=== PATIENT | male | born 1980 | race Caucasian/White ===

== ENCOUNTER 2016-09-01 11:05 | Emergency (ER) | payer SELFPAY ==
[2016-09-01 11:19] VITALS: BP 157/93; PULSE 71; RESP 16; TEMP 98
--- NOTE | 2016-09-01 11:57 | ED ---
General Adult HPI - General Chief complaint: ENT Stated complaint: MOUTH INFECTION Time Seen by Provider: 09/01/16 11:29 Source: patient, RN notes reviewed, old records reviewed Mode of arrival: ambulatory Limitations: no limitations - History of Present Illness Initial comments: Chief complaint and history of present for 6-year-old male to complaint of dental pain. Teeth #13 and 14 have dental caries. He states within the month he is scheduled to have 2 root canals. - Related Data Home Medications Medication Instructions Recorded Confirmed Aspirin 325 - 650 mg PO QID PRN 12/16/15 09/01/16 Ibuprofen [Motrin] 400 - 800 mg PO Q6HR PRN 09/01/16 09/01/16 Previous Rx's Medication Instructions Recorded Cephalexin [Keflex] 500 mg PO Q6HR #40 cap 09/01/16 Hydrocodone/Acetaminophen [[place] 1 each PO Q6HR PRN #15 tab 09/01/16 5-325] Allergies Allergy/AdvReac Type Severity Reaction Status Date / Time No Known Allergies Allergy Verified 09/01/16 11:30 Review of Systems ROS Statement: Those systems with pertinent positive or pertinent negative responses have been documented in the HPI. Review of systems. No headache minimal pain at this time no stiff neck no complaint of chest pain shows breath GI/ problems no complaint of a neuro deficits. All systems are reviewed. Past medical problems dental problems. Also probably rheumatoid arthritis who was described him as a migrating arthritis. Patient denies any surgeries. Denies any ALLERGIES. Denies any smoking. Alcohol use social. No known ALLERGIES but he states the amoxicillin which been used in the past was not as effective. ROS Other: All systems not noted in ROS Statement are negative. Past Medical History Past Medical History: Rheumatoid Arthritis (RA) History of Any Multi-Drug Resistant Organisms: None Reported Past Surgical History: No Surgical Hx Reported Past Psychological History: No Psychological Hx Reported Smoking Status: Never smoker Past Alcohol Use History: None Reported Past Drug Use History: None Reported General Exam - General Exam Comments Initial Comments: General: The patient is awake and alert, in no distress, and does not appear acutely ill. Complaint of tooth pain to his #13 and 15 teeth. Vital signs temp 98.0 pulse 71 respiratory rate 16 pulse ox 98% room air blood pressure 157/93 elevated systolic diastolic noted the patient is in pain. Advised to talk to his family physician if he does not have one that he'll be given a name of 1 to follow-up with to make sure the blood pressure under control. Within the next week Eye: Pupils are equal, round and reactive to light, extra-ocular movements are intact ; there is normal conjunctiva bilaterally. No signs of icterus. Ears, nose, mouth and throat: There are moist mucous membranes and no oral lesions. Teeth #13 and 15 of cavities. He states he is scheduled to have a root canal within the month. Neck: The neck is supple, there is no tenderness . Cardiovascular: No chest pain or palpitations Respiratory: No shortness of breath, no wheezing. Gastrointestinal: Denies nausea vomiting or diarrhea. Musculoskeletal: History of migratory arthritis. No complaints at this time. Limitations: no limitations Course Vital Signs 09/01/16 11:16 Temperature 98.0 F Pulse Rate 71 Respiratory 16 Rate Blood Pressure 157/93 O2 Sat by Pulse 98 Oximetry Medical Decision Making - Medical Decision Making The patient is advised follow-up with family physician he does not have one be given 1 his blood pressure. Also advised follow-up with his dentist. Replaced on cephalexin 500 4 times a day for 10 days. Advised to use [id number] ibuprofen and/or naproxen for pain he'll also be given a prescription of Everett for breakthrough pain. Disposition Clinical Impression: Dental caries extending into pulp Disposition: HOME SELF-CARE Condition: Fair Instructions: Dental Caries (ED), Acute Dental Trauma (ED) Additional Instructions: Follow-up with dentist as soon as possible. Follow-up with family physician to make sure the pressure stays in range. Take medications as directed Prescriptions: Cephalexin [Keflex] 500 mg PO Q6HR #40 cap Hydrocodone/Acetaminophen [Everett 5-325] 1 each PO Q6HR PRN #15 tab PRN Reason: Pain Time of Disposition: 11:57
== END 2016-09-01 12:14 | disposition home or self-care (01) ==
LOC: EC 11:05
DX: K02.9 Dental caries, unspecified (principal)
CPT/HCPCS: 99282

== ENCOUNTER 2017-03-13 02:58 | Observation (INO) | payer OTHER ==
[2017-03-13] MEDS ORDERED: SODIUM CHLORIDE 0.9% 1,000 ML IV STA (03:40)
[2017-03-13] MEDS ORDERED: PANTOPRAZOLE 40 MG/10 ML VIAL IVP STA (03:40)
[2017-03-13] MEDS ORDERED: MORPHINE SULFATE 4 MG/ML SYRINGE IV STA ×2 (03:41→04:37)
--- NOTE | 2017-03-13 03:46 | ED ---
General Adult HPI - General Chief complaint: GI Bleed Stated complaint: abd pain, vomiting blood Time Seen by Provider: 03/13/17 03:34 Source: patient, RN notes reviewed Mode of arrival: wheelchair Limitations: no limitations - History of Present Illness Initial comments: Patient is a pleasant 37-year-old male presenting to the emergency department for vomiting blood. Patient woke up around 11:30 with abdominal cramping. Patient had a normal bowel movement. Patient has had nausea. Patient then had an episode with several episodes of hematemesis lasting 1 minute. Patient did have some bright red as well as some dark red and possible clots. No history of vomiting blood previously. Patient does have chronic problems with frequent diarrhea. Patient has continued intermittent abdominal cramping. No significant NSAID or alcohol use. - Related Data Home Medications Medication Instructions Recorded Confirmed Aspirin 325 - 650 mg PO QID PRN 12/16/15 09/01/16 Ibuprofen [Motrin] 400 - 800 mg PO Q6HR PRN 09/01/16 09/01/16 Previous Rx's Medication Instructions Recorded Cephalexin [Keflex] 500 mg PO Q6HR #40 cap 09/01/16 Hydrocodone/Acetaminophen [[place] 1 each PO Q6HR PRN #15 tab 09/01/16 5-325] Allergies Allergy/AdvReac Type Severity Reaction Status Date / Time No Known Allergies Allergy Verified 03/13/17 03:07 Review of Systems ROS Statement: Those systems with pertinent positive or pertinent negative responses have been documented in the HPI. ROS Other: All systems not noted in ROS Statement are negative. Constitutional: Denies: fever Eyes: Denies: eye pain ENT: Denies: ear pain Respiratory: Denies: cough Cardiovascular: Denies: chest pain Endocrine: Denies: fatigue Gastrointestinal: Reports: abdominal pain, vomiting, hematemesis Genitourinary: Denies: dysuria Musculoskeletal: Denies: back pain Skin: Denies: rash Neurological: Denies: weakness Past Medical History Past Medical History: Rheumatoid Arthritis (RA) History of Any Multi-Drug Resistant Organisms: None Reported Past Surgical History: No Surgical Hx Reported Past Psychological History: No Psychological Hx Reported Smoking Status: Never smoker Past Alcohol Use History: None Reported Past Drug Use History: None Reported General Exam Limitations: no limitations General appearance: alert, in no apparent distress Head exam: Present: atraumatic Eye exam: Present: normal appearance, PERRL ENT exam: Present: normal oropharynx Neck exam: Present: normal inspection Respiratory exam: Present: normal lung sounds bilaterally Cardiovascular Exam: Present: regular rate, normal rhythm Expanded Peripheral pulses: 2+: Dorsalis Pedis (R), Dorsalis Pedis (L) GI/Abdominal exam: Present: soft, tenderness (Mild right flank and epigastric tenderness), normal bowel sounds. Absent: distended, guarding, rebound, rigid, pulsatile mass Extremities exam: Present: normal inspection Neurological exam: Present: alert Psychiatric exam: Present: normal affect, normal mood Skin exam: Present: normal color Course Vital Signs 03/13/17 03/13/17 03/13/17 03:04 03:45 04:16 Temperature 98.4 F Pulse Rate 75 84 77 Respiratory 20 18 18 Rate Blood Pressure 204/114 178/110 171/106 O2 Sat by Pulse 98 96 95 Oximetry 03/13/17 04:19 Temperature Pulse Rate 82 Respiratory 18 Rate Blood Pressure 166/98 O2 Sat by Pulse 97 Oximetry - Reevaluation(s) Reevaluation #1: 03/13/17 04:35 Patient reevaluated and resting comfortably in bed. Patient states his pain is starting to return. Patient requests further pain medication. Patient blood pressure remains high however he just did receive medication for this. Patient updated on results and plan. Case discussed in detail with Dr. Hook, who will admit for hospital call. Medical Decision Making - Lab Data Result diagrams: 03/13/17 03:35 03/13/17 03:35 Lab Results 03/13/17 03/13/17 03/13/17 Range/Units 03:35 03:35 03:35 WBC 10.9 H (3.8-10.6) k/uL RBC 5.26 (4.30-5.90) m/uL Hgb 16.8 (13.0-17.5) gm/dL Hct 48.9 (39.0-53.0) % MCV 92.9 (80.0-100.0) fL MCH 32.0 (25.0-35.0) pg MCHC 34.4 (31.0-37.0) g/dL RDW 12.2 (11.5-15.5) % Plt Count 221 (150-450) k/uL Neutrophils % 73 % Lymphocytes % 20 % Monocytes % 4 % Eosinophils % 2 % Basophils % 1 % Neutrophils # 7.9 H (1.3-7.7) k/uL Lymphocytes # 2.2 (1.0-4.8) k/uL Monocytes # 0.4 (0-1.0) k/uL Eosinophils # 0.2 (0-0.7) k/uL Basophils # 0.1 (0-0.2) k/uL PT 10.1 (9.0-12.0) sec INR 1.0 (<1.2) APTT 24.0 (22.0-30.0) sec Sodium 142 (137-145) mmol/L Potassium 4.4 (3.5-5.1) mmol/L Chloride 104 (98-107) mmol/L Carbon Dioxide 26 (22-30) mmol/L Anion Gap 12 mmol/L BUN 12 (9-20) mg/dL Creatinine 0.90 (0.66-1.25) mg/dL Est GFR (MDRD) Af Amer >60 (>60 ml/min/1.73 sqM) Est GFR (MDRD) Non-Af >60 (>60 ml/min/1.73 sqM) Glucose 138 H (74-99) mg/dL Calcium 9.8 (8.4-10.2) mg/dL Total Bilirubin 0.4 (0.2-1.3) mg/dL AST 63 H (17-59) U/L ALT 171 H (21-72) U/L Alkaline Phosphatase 70 (38-126) U/L Total Protein 7.4 (6.3-8.2) g/dL Albumin 4.6 (3.5-5.0) g/dL Amylase 57 (30-110) U/L Lipase 148 (23-300) U/L Disposition Clinical Impression: Upper GI hemorrhage Disposition: ADMITTED IP TO THIS HOSP Referrals: None,Stated [Primary Care Provider] - 1-2 days Decision Time: 04:36
[2017-03-13] MEDS ORDERED: ENALAPRILAT 1.25 MG/ML 1 ML VIAL IVP STA (03:56)
[2017-03-13 03:57] LABS: Basophils # (A) 0.1 k/uL (0-0.2); Basophils % (A) 1 %; CH 31.9; CHCM 34.5; Eosinophils # (A) 0.2 k/uL (0-0.7); Eosinophils % (A) 2 %; HCT 48.9 % (39.0-53.0); HDW 2.47; HGB 16.8 gm/dL (13.0-17.5); Luc # (Auto) 0.15; Luc % (Auto) 1; Lymphocytes # (A) 2.2 k/uL (1.0-4.8); Lymphocytes % (A) 20 %; MCHC 34.4 g/dL (31.0-37.0); MCV 92.9 fL (80.0-100.0); Monocytes # (A) 0.4 k/uL (0-1.0); Monocytes % (A) 4 %; Neutrophils # (A) 7.9 k/uL (1.3-7.7); Neutrophils % (A) 73 %; RBC 5.26 m/uL (4.30-5.90); RDW 12.2 % (11.5-15.5); WBC 10.9 k/uL (3.8-10.6)
[2017-03-13 04:09] LABS: Prothrombin Time 10.1 sec (9.0-12.0)
[2017-03-13 04:11] LABS: ALT 171 U/L (21-72); AST 63 U/L (17-59); Alkaline Phosphatase 70 U/L (38-126); Amylase 57 U/L (30-110); Anion Gap 12 mmol/L; Blood Urea Nitrogen 12 mg/dL (9-20); Calcium 9.8 mg/dL (8.4-10.2); Carbon Dioxide 26 mmol/L (22-30); Chloride 104 mmol/L (98-107); Glucose 138 mg/dL (74-99); Non-African American GFR(MDRD) >60 (>60 ml/min/1.73 sqM); Potassium 4.4 mmol/L (3.5-5.1); Sodium 142 mmol/L (137-145); Total Bilirubin 0.4 mg/dL (0.2-1.3); Total Protein 7.4 g/dL (6.3-8.2)
--- NOTE | 2017-03-13 04:14 | XR ---
EXAM: XR Abdomen Complete, 2 or More Views CLINICAL HISTORY: Reason: Pain TECHNIQUE: Frontal view of the abdomen/pelvis with upright view of the abdomen. COMPARISON: No relevant prior studies available. FINDINGS: Gastrointestinal tract: Moderate amount stool in the colon. No dilation. Bones/joints: Unremarkable. Other findings: Questionable tiny calcifications in the region of pancreatic tail, may suggest chronic pancreatitis, nonspecific. IMPRESSION: Nonspecific bowel gas pattern
[2017-03-13] MEDS ORDERED: NALOXONE 0.4 MG/ML 1 ML VIAL IV PRN (04:36)
[2017-03-13] MEDS: SODIUM CHLORIDE 0.9% 1,000 ML IV SCH (05:01)
[2017-03-13] MEDS ORDERED: IOHEXOL 350 MG/ML 25 ML BOTTLE (ORAL USE) PO PRN (10:47)
[2017-03-13] MEDS ORDERED: RX INFO: IV CONTRAST WAS GIVEN 1 EACH MISC MISCELLANE PRN (10:47)
--- NOTE | 2017-03-13 10:54 | P.CONS ---
History of Present Illness - Reason for Consult Consult date: 03/13/17 nausea vomiting Requesting physician: Rosita Evans - History of Present Illness 37-year-old male with a history of rheumatoid arthritis presents with acute onset of periumbilical right lower quadrant abdominal pain nausea vomiting. Patient stated he was awakened around 11 PM last night with periumbilical pain followed by multiple dry heaves and one projectile bilious emesis somewhat blood tinged. No diarrhea hematochezia or melena. No fever or chills. Pain is now migrated to the right lower quadrant difficult to get comfortable. No history of this type of pain. No medications alcohol tobacco. No history of IVDA. No NSAIDs or aspirin. White count 10.9. Hemoglobin 16.9. AST 63. ALT 161. Alkaline phosphatase and total bilirubin normal. Lipase 148. Abdominal X-rays nonspecific bowel gas pattern Review of Systems Constitutional: Denies fever, chills, sweats, weight gain, or loss. HEENT: Negative for migraines, blurred vision or loss, earaches, drainage, tinnitus, oral mucosal lesions, dysphagia, or odynophagia. Cardiac: Negative for chest pain, arrhythmias, or palpitation. Respiratory: Negative for shortness of breath, hemoptysis, cough, or sputum production. Gastrointestinal: See HPI for pertinent findings. Genitourinary: Negative for hematuria, urgency, frequency, polyuria, dysuria, or penile discharge. Musculoskeletal: History of rheumatoid arthritis. Neurologic: Negative for stroke or TIA. Endocrine: Negative for thyroid problems. Skin: Negative for rash or itching. Psychiatric: Negative history for depression and anxiety All systems: negative (See HPI) Past Medical History Past Medical History: Rheumatoid Arthritis (RA) History of Any Multi-Drug Resistant Organisms: None Reported Past Surgical History: No Surgical Hx Reported Past Psychological History: No Psychological Hx Reported Smoking Status: Never smoker Past Alcohol Use History: None Reported Past Drug Use History: None Reported - Past Family History Mother Additional Family Medical History / Comment(s): Mother has RLS Father Additional Family Medical History / Comment(s): Father is an alcoholic. Medications and Allergies Home Medications Medication Instructions Recorded Confirmed Type Aspirin 325 - 650 mg PO QID PRN 12/16/15 03/13/17 History Ibuprofen [Motrin] 400 - 800 mg PO Q6HR PRN 09/01/16 03/13/17 History Allergies Allergy/AdvReac Type Severity Reaction Status Date / Time No Known Allergies Allergy Verified 03/13/17 07:31 Physical Exam Vitals: Vital Signs Temp Pulse Pulse Resp BP BP Pulse Ox 03/13/17 10:31 74 18 03/13/17 09:17 97.7 F 74 18 135/73 96 03/13/17 09:04 98.7 F 72 18 135/90 95 03/13/17 06:38 99.2 F 87 18 132/88 96 03/13/17 06:02 78 18 154/90 95 03/13/17 05:05 85 16 168/101 98 03/13/17 04:19 82 18 166/98 97 03/13/17 04:16 77 18 171/106 95 03/13/17 03:45 84 18 178/110 96 03/13/17 03:04 98.4 F 75 20 204/114 98 Intake and Output 03/12/17 03/13/17 03/13/17 22:59 06:59 14:59 Other: Weight 93.894 kg 95.1 kg Patient Weight 03/14/17 06:59 Weight 95.1 kg General appearance: The patient is alert, oriented, in no acute distress. HET: Head is normocephalic and atraumatic. Pupils are equal and reactive. Oropharynx is clear without lesions. Neck: Supple without lymphadenopathy. Trachea midline. Heart: S1 S2. Regular rate and rhythm. Lungs: No crackles or wheezes are heard. Abdomen: Soft, exquisite tenderness right lower quadrant periumbilical region with guarding. No palpable organomegaly or masses. Extremities: Normal skin color and turgor. No cyanosis, rash, ulceration, clubbing, or edema. Radial and pedal pulses are 2/4 bilaterally. Neurological: No focal deficits. Strength and sensation are grossly intact. Results CBC & Chem 7: 03/14/17 06:53 03/13/17 10:51 Labs: Abnormal Lab Results - Last 24 Hours (Table) 03/13/17 03/13/17 Range/Units 03:35 03:35 WBC 10.9 H (3.8-10.6) k/uL Neutrophils # 7.9 H (1.3-7.7) k/uL Glucose 138 H (74-99) mg/dL AST 63 H (17-59) U/L ALT 171 H (21-72) U/L Assessment and Plan (1) Abdominal pain Narrative/Plan: 37-year-old male presents with severe periumbilical right lower quadrant abdominal pain possible peritonitis with dry heaves and 1 episode of blood tinged bilious emesis suspect Neema-Azul tear. Cannot exclude underlying surgical abdomen. Status: Acute Plan: 1. Repeat CBC, CMP, lactic acid. Recommend surgical evaluation for periumbilical right lower quadrant abdominal pain. 2. Computed tomography scan abdomen and pelvis with contrast. 3. Nothing by mouth. 4. Protonix 40 mg IV daily. Upper endoscopy contingent on clinical course. Thank you for this kind referral and the opportunity to participate in the care of your patient. This consultation was discussed with Dr. Anderson. The impression and plan of care have been directed as dictated.
[2017-03-13] MEDS ORDERED: HYDROmorphone 1 MG/ML 1 ML SYRINGE ONE (11:02)
[2017-03-13] MEDS: PANTOPRAZOLE 40 MG/10 ML VIAL IV SCH (11:06)
[2017-03-13] MEDS: HYDROmorphone 1 MG/ML 1 ML SYRINGE IVP PRN ×3 (11:07→22:46)
[2017-03-13 11:12] LABS: Basophils % (A) 0 %; CH 32.6; CHCM 34.3; Eosinophils # (A) 0.1 k/uL (0-0.7); Eosinophils % (A) 1 %; HDW 2.42; HGB 16.1 gm/dL (13.0-17.5); Luc % (Auto) 1; Lymphocytes % (A) 16 %; MCH 31.3 pg (25.0-35.0); MCHC 32.9 g/dL (31.0-37.0); MCV 95.2 fL (80.0-100.0); Mean Platelet Volume 8.3; Monocytes # (A) 0.6 k/uL (0-1.0); Monocytes % (A) 5 %; Neutrophils # (A) 9.9 k/uL (1.3-7.7); Neutrophils % (A) 77 %; RBC 5.15 m/uL (4.30-5.90); RDW 13.3 % (11.5-15.5); WBC 12.8 k/uL (3.8-10.6); WBC (Perox) 12.36
[2017-03-13 11:26] LABS: ALT 158 U/L (21-72); AST 50 U/L (17-59); Alkaline Phosphatase 59 U/L (38-126); Anion Gap 8 mmol/L; Blood Urea Nitrogen 10 mg/dL (9-20); Calcium 9.4 mg/dL (8.4-10.2); Carbon Dioxide 29 mmol/L (22-30); Chloride 103 mmol/L (98-107); Glucose 110 mg/dL (74-99); Non-African American GFR(MDRD) >60 (>60 ml/min/1.73 sqM); Potassium 4.5 mmol/L (3.5-5.1); Sodium 140 mmol/L (137-145); Total Bilirubin 0.8 mg/dL (0.2-1.3); Total Protein 7.2 g/dL (6.3-8.2)
--- NOTE | 2017-03-13 13:12 | CT ---
EXAMINATION TYPE: CT abdomen pelvis w con DATE OF EXAM: 03/13/2017 COMPARISON: NONE HISTORY: 37-year-old male RLQ pain TECHNIQUE: Contiguous axial scanning of the abdomen and pelvis following administration of 100 ml Omn ipaque 300 IV contrast. Delayed images through the kidneys and coronal/sagittal reconstructions perf ormed. CT DLP: 1107.5 mGycm Automated exposure control for dose reduction was used. FINDINGS: Heart is normal size without pericardial effusion. Dependent atelectasis along the posterior lung bas es. Liver is enlarged measuring 19.5 cm craniocaudal with low density as compared to the spleen suggestin g fatty infiltration. Portal venous system is patent. No biliary ductal dilatation. Gallbladder, adrenal glands, right kidney, spleen, and pancreas show no gross abnormality. Hilar sple nule is present. Subcentimeter hypodensity lower pole left kidney too small for accurate CT characterization, suggesti ve of cyst. No dilated small bowel, free fluid, or free air. Borderline enlarged 7 mm right lower quadrant mesenteric lymph node is noted, likely reactive. Otherw ise, scattered nonenlarged mesenteric lymph nodes are seen. Tiny fatty milk or hernia. There is a 8 mm calculus near the appendiceal base, coronal image 47. The appendix is thickened up to 9 mm with a mild periappendiceal fat stranding. Mild circumferential bladder wall thickening could represent chronic bladder wall hypertrophy or cyst itis. The prostate gland is mildly enlarged at 4.0 cm. No abnormal fluid collection in the pelvis or pelvic lymphadenopathy seen. Bones: There is a left L5 hemisacralization. Osseous destructive process. IMPRESSION: 1. MILD ACUTE DIVERTICULITIS WITH AN 8 MM APPENDICOLITH. NO ABSCESS OR FREE AIR. 2. HEPATOMEGALY AND HEPATIC STEATOSIS. CORRELATE WITH LFT's, LIPID PROFILE, AND PATIENT RISK FACTORS.
--- NOTE | 2017-03-13 13:24 | P.GSCN ---
History of Present Illness Consult date: 03/13/17 Reason for Consult: Abdominal pain History of present illness: Patient began experiencing mid abdominal crampy discomfort around 11:30 last night. This was then associated with numerous episodes of dry heaves and subsequent vomiting. He did notice blood within the emesis. No history of similar events in the past. No fevers. Appetite diminished. Today the pain has moved down to the right lower quadrant. White blood cell count slightly elevated. Hemoglobin is stable. CAT scan was just performed and does show findings of acute appendicitis with an appendicolith present. The visualized stomach and duodenum appear normal. Review of Systems The patient denies any acute changes in vision or hearing, no dysphagia or odynophagia, no chest pain or shortness of breath, no dysuria or hematuria, no headache, no runny nose, no rectal bleeding or melena, no unexplained weight loss Past Medical History Past Medical History: Rheumatoid Arthritis (RA) History of Any Multi-Drug Resistant Organisms: None Reported Past Surgical History: No Surgical Hx Reported Additional Past Anesthesia/Blood Transfusion Reaction / Comm: Pt has never had surgery Smoking Status: Never smoker - Past Family History Mother Additional Family Medical History / Comment(s): Mother has RLS Father Additional Family Medical History / Comment(s): Father is an alcoholic. Medications and Allergies Home Medications Medication Instructions Recorded Confirmed Type Aspirin 325 - 650 mg PO QID PRN 12/16/15 03/13/17 History Ibuprofen [Motrin] 400 - 800 mg PO Q6HR PRN 09/01/16 03/13/17 History Allergies Allergy/AdvReac Type Severity Reaction Status Date / Time No Known Allergies Allergy Verified 03/13/17 07:31 Surgical - Exam Vital Signs Temp Pulse Resp BP Pulse Ox 98.4 F 75 20 204/114 98 03/13/17 03:04 03/13/17 03:04 03/13/17 03:04 03/13/17 03:04 03/13/17 03:04 Physical exam: General: Well-developed, well-nourished HEENT: Normocephalic, sclerae nonicteric Abdomen: Moderate right lower quadrant tenderness, nondistended Extremities: No edema Neuro: Alert and oriented Results - Labs 03/13/17 10:51 03/13/17 10:51 Abnormal Lab Results - Last 24 Hours (Table) 03/13/17 03/13/1703/13/17 Range/Units 03:35 03:35 10:51 WBC 10.9 H 12.8 H (3.8-10.6) k/uL Neutrophils # 7.9 H 9.9 H (1.3-7.7) k/uL Glucose 138 H (74-99) mg/dL AST 63 H (17-59) U/L ALT 171 H (21-72) U/L 03/13/17 Range/Units 10:51 WBC (3.8-10.6) k/uL Neutrophils # (1.3-7.7) k/uL Glucose 110 H (74-99) mg/dL AST (17-59) U/L ALT 158 H (21-72) U/L Diabetes panel 03/13/17 03/13/17 Range/Units 03:35 10:51 Sodium 142 140 (137-145) mmol/L Potassium 4.4 4.5 (3.5-5.1) mmol/L Chloride 104 103 (98-107) mmol/L Carbon Dioxide 26 29 (22-30) mmol/L BUN 12 10 (9-20) mg/dL Creatinine 0.90 0.85 (0.66-1.25) mg/dL Glucose 138 H 110 H (74-99) mg/dL Calcium 9.8 9.4 (8.4-10.2) mg/dL AST 63 H 50 (17-59) U/L ALT 171 H 158 H (21-72) U/L Alkaline Phosphatase 70 59 (38-126) U/L Total Protein 7.4 7.2 (6.3-8.2) g/dL Albumin 4.6 4.3 (3.5-5.0) g/dL Calcium panel 03/13/17 03/13/17 Range/Units 03:35 10:51 Calcium 9.8 9.4 (8.4-10.2) mg/dL Albumin 4.6 4.3 (3.5-5.0) g/dL Pituitary panel 03/13/17 03/13/17 Range/Units 03:35 10:51 Sodium 142 140 (137-145) mmol/L Potassium 4.4 4.5 (3.5-5.1) mmol/L Chloride 104 103 (98-107) mmol/L Carbon Dioxide 26 29 (22-30) mmol/L BUN 12 10 (9-20) mg/dL Creatinine 0.90 0.85 (0.66-1.25) mg/dL Glucose 138 H 110 H (74-99) mg/dL Calcium 9.8 9.4 (8.4-10.2) mg/dL Adrenal panel 03/13/17 03/13/17 Range/Units 03:35 10:51 Sodium 142 140 (137-145) mmol/L Potassium 4.4 4.5 (3.5-5.1) mmol/L Chloride 104 103 (98-107) mmol/L Carbon Dioxide 26 29 (22-30) mmol/L BUN 12 10 (9-20) mg/dL Creatinine 0.90 0.85 (0.66-1.25) mg/dL Glucose 138 H 110 H (74-99) mg/dL Calcium 9.8 9.4 (8.4-10.2) mg/dL Total Bilirubin 0.4 0.8 (0.2-1.3) mg/dL AST 63 H 50 (17-59) U/L ALT 171 H 158 H (21-72) U/L Alkaline Phosphatase 70 59 (38-126) U/L Total Protein 7.4 7.2 (6.3-8.2) g/dL Albumin 4.6 4.3 (3.5-5.0) g/dL Assessment and Plan (1) Acute appendicitis Narrative/Plan: Clinical findings discussed with the patient. Plan at this point to proceed with laparoscopic appendectomy, possible open appendectomy. We'll also add intraoperative EGD given the recent bleeding. Risks of bleeding infection hernia leak abscess conversion to an open procedure recurrent GI bleeding and wound infection discussed. He understands and wishes to proceed. Status: Acute
[2017-03-13] MEDS: PIPERACILLIN-TAZOBACTAM 3.375 GM in DEXTROSE/WATER 1 50ML.BAG IVPB SCH ×2 (16:00→22:47)
[2017-03-13] MEDS ORDERED: DEXAMETHASONE SOD PHOSPHATE 10 MG/ML 1 ML VIAL IV ONE (18:14)
[2017-03-13] MEDS ORDERED: IV FLUID CONTINUATION 1,000 ML IV ONE (18:14)
[2017-03-13] MEDS ORDERED: ONDANSETRON 4 MG/2 ML VIAL IVP ONE (18:15)
[2017-03-13] MEDS ORDERED: BUPIVACAIN-EPI 0.5%-1:200,000 30 ML VIAL SQ ONE (18:39)
[2017-03-13] MEDS ORDERED: HYDROcodone/APAP 5-325MG 1 EACH TAB PO PRN (19:05)
--- NOTE | 2017-03-13 19:09 | P.OP ---
Date of Procedure: 03/13/17 Preoperative Diagnosis: Postoperative Diagnosis: Procedure(s) Performed: PREOPERATIVE DIAGNOSIS: Acute appendicitis, GI bleed POSTOPERATIVE DIAGNOSIS: Same PROCEDURE: Laparoscopic appendectomy, intraoperative EGD SURGEON: Reena EBL: Minimal ANESTHESIA: General COMPLICATIONS: None OPERATIVE PROCEDURE: The patient was brought and placed on the operating table in the supine position. The patient was placed under general anesthesia. The Olympus gastroscope was inserted into the oropharynx and passed under direct visualization to the region of the third portion of the duodenum. From that point the scope was slowly withdrawn inspecting all surfaces carefully. There were no neoplastic inflammatory or polypoid lesions throughout the duodenum. The pylorus was widely patent. The stomach was carefully inspected. There was evidence of mild gastritis proximally in the stomach. I could not visualize a definite tear however I suspect the patient had a Neema-Azul tear that was the source of bleeding. Retroflexion revealed a normal hiatus. The esophagus was then carefully examined. Mild distal esophagitis was present. The abdomen was then prepped and draped in the usual sterile fashion. A small vertical infraumbilical incision was made. The fascia was retracted anteriorly with Mouna forceps. The Veress needle was advanced into the perineal cavity. The saline drop test was normal. Insufflation took place to 15 mmHg. A 5 mm trocar was then placed. An additional 5 mm suprapubic trocar was placed under direct visualization as well as a 12 mm left lower quadrant trocar under direct visualization. The appendix was inspected. It was acutely inflamed. The mesoappendix was dissected. The base of the appendix was divided using a linear 45 mm intestinal stapler. The mesentery itself was divided using the qiu load stapler. A small amount of bleeding was identified along the length of the staple line and this was controlled using small 12 mm clips. The area was then irrigated. No further purulence or bleeding was seen. The appendix was brought out of the peritoneal cavity through the left lower quadrant trocar site using an Endo Catch bag. The fascia at the 12 mm site was closed using a [id number] 0 Vicryl stitch. The skin at all 3 sites was closed using 4-0 Monocryl sutures. Steri-Strips and sterile dressings then applied. DISPOSITION: Stable to recovery room Implants: Indications for Procedure: Operative Findings: Description of Procedure:
[2017-03-13] MEDS ORDERED: LACTATED RINGERS 1,000 ML IV ONE ×2 (19:38)
--- NOTE | 2017-03-13 22:45 | P.HPIM ---
History of Present Illness H&P Date: 03/13/17 Chief Complaint: Coffee-ground emesis and abdominal pain Patient is a pleasant 37-year-old male with past medical history of rheumatoid arthritis diagnosed when he was very young, currently not on any medications presenting to the emergency department for vomiting blood. Patient woke up around 11:30 with abdominal cramping. Mainly pain is at around umbilical area. Patient had a normal bowel movement. Patient has had nausea. Patient then had an episode with several episodes of hematemesis lasting 1 minute. Patient did have some bright red as well as some dark red and possible clots. No history of vomiting blood previously. Patient has continued intermittent abdominal cramping. No significant NSAID or alcohol use. Patient denied any fever or chills. No recent illnesses. CT of abdomen and pelvis showed mild acute diverticulitis with 8 mm appendicolith. Patient was seen by general surgery and is planning for laparoscopic appendectomy. Review of Systems CONSTITUTIONAL: No fever, no malaise, no fatigue. HEENT: No recent visual problems or hearing problems. Denied any sore throat. CARDIOVASCULAR: No chest pain, orthopnea, PND, no palpitations, no syncope. PULMONARY: , no hemoptysis. GASTROINTESTINAL: No diarrhea, no nausea, 1 episode of coffee-ground vomiting, positive abdominal pain. Normoactive bowel sounds. NEUROLOGICAL: No headaches, no weakness, no numbness. HEMATOLOGICAL: Denies any bleeding or petechiae. GENITOURINARY: Denies any burning micturition, frequency, or urgency. MUSCULOSKELETAL/RHEUMATOLOGICAL: Denies any joint pain, swelling, or any muscle pain. ENDOCRINE: Denies any polyuria or polydipsia. The rest of the 14-point review of systems is negative. Past Medical History Past Medical History: Rheumatoid Arthritis (RA) History of Any Multi-Drug Resistant Organisms: None Reported Past Surgical History: No Surgical Hx Reported Additional Past Anesthesia/Blood Transfusion Reaction / Comment(s): Pt has never had surgery Smoking Status: Never smoker - Past Family History Mother Additional Family Medical History / Comment(s): Mother has RLS Father Additional Family Medical History / Comment(s): Father is an alcoholic. Medications and Allergies Home Medications Medication Instructions Recorded Confirmed Type Aspirin 325 - 650 mg PO QID PRN 12/16/15 03/13/17 History Ibuprofen [Motrin] 400 - 800 mg PO Q6HR PRN 09/01/16 03/13/17 History Allergies Allergy/AdvReac Type Severity Reaction Status Date / Time No Known Allergies Allergy Verified 03/13/17 07:31 Physical Exam Vitals: Vital Signs Temp Pulse Pulse Resp BP BP Pulse Ox 03/13/17 15:38 98.8 F 67 18 136/56 98 03/13/17 12:00 18 03/13/17 10:31 74 18 03/13/17 09:17 97.7 F 74 18 135/73 96 03/13/17 09:04 98.7 F 72 18 135/90 95 03/13/17 06:38 99.2 F 87 18 132/88 96 03/13/17 06:02 78 18 154/90 95 03/13/17 05:05 85 16 168/101 98 03/13/17 04:19 82 18 166/98 97 03/13/17 04:16 77 18 171/106 95 03/13/17 03:45 84 18 178/110 96 03/13/17 03:04 98.4 F 75 20 204/114 98 Intake and Output 03/13/17 03/13/17 03/13/17 06:59 14:59 22:59 Other: Weight 93.894 kg 95.1 kg Patient Weight 03/14/17 06:59 Weight 95.1 kg PHYSICAL EXAMINATION: Patient is lying in the bed comfortably, no acute distress, awake alert and oriented.. HEENT: Normocephalic. Neck is supple. Pupils reactive. Nostrils clear. Oral cavity is moist. Ears reveal no drainage. Neck reveals no JVD, carotid bruits, or thyromegaly. CHEST EXAMINATION: Trachea is central. Symmetrical expansion. Lung nam clear to auscultation and percussion. CARDIAC: Normal S1, S2 with no gallops. No murmurs ABDOMEN: Soft. Bowel sounds normal. No organomegaly. No abdominal bruits. Mild lower abdominal tenderness Extremities reveal no edema. No clubbing or cyanosis Neurologically awake, alert, oriented x3 with well-coordinated movements. Skin: no rash or skin lesions Musculoskeletal: no joint swelling or deformity. Results CBC & Chem 7: 03/13/17 10:51 03/13/17 10:51 Labs: Abnormal Lab Results - Last 24 Hours (Table) 03/13/17 03/13/17 03/13/17 Range/Units 03:35 03:35 10:51 WBC 10.9 H 12.8 H (3.8-10.6) k/uL Neutrophils # 7.9 H 9.9 H (1.3-7.7) k/uL Glucose 138 H (74-99) mg/dL AST 63 H (17-59) U/L ALT 171 H (21-72) U/L 03/13/17 Range/Units 10:51 WBC (3.8-10.6) k/uL Neutrophils # (1.3-7.7) k/uL Glucose 110 H (74-99) mg/dL AST (17-59) U/L ALT 158 H (21-72) U/L CT scan - abdomen: report reviewed Thrombosis Risk Factor Assmnt - DVT/VTE Prophylaxis DVT/VTE Prophylaxis: Pharmacologic Prophylaxis ordered - Choose All That Apply Any of the Below Risk Factors Present?: Yes Each Factor Represents 1 point: Obesity (BMI >25) Other Risk Factors: No Other congenital or acquired thrombophilia - If yes, enter type in comment: No Thrombosis Risk Factor Assessment Total Risk Factor Score: 1 Thrombosis Risk Factor Assessment Level: Low Risk Assessment and Plan Plan: #1 lower abdominal pain likely due to acute appendicitis. CT of abdomen and pelvis was done #2 coffee-ground emesis with possible gastritis. No active vomiting or symptoms at this time. #3 history of rheumatoid arthritis diagnosis several years ago not on any medication now. #4 DVT prophylaxis. Plan: Patient will be continued on pain medications and follow with general surgery recommendations. Patient is scheduled for laparoscopic appendectomy today and possible intraoperative EGD. We will continue the Protonix IV. Monitor H&H. Further recommendations based on the clinical course.
[2017-03-14] MEDS: HYDROmorphone 1 MG/ML 1 ML SYRINGE IVP PRN ×4 (02:19→18:16)
[2017-03-14 07:34] LABS: Basophils % (A) 0 %; CH 32.4; CHCM 33.5; Eosinophils % (A) 0 %; HCT 45.8 % (39.0-53.0); HDW 2.38; Luc # (Auto) 0.05; Luc % (Auto) 1; Lymphocytes # (A) 1.2 k/uL (1.0-4.8); Lymphocytes % (A) 11 %; MCH 31.7 pg (25.0-35.0); MCHC 32.7 g/dL (31.0-37.0); MCV 97.2 fL (80.0-100.0); Mean Platelet Volume 8.4; Monocytes # (A) 0.4 k/uL (0-1.0); Monocytes % (A) 3 %; Neutrophils # (A) 8.8 k/uL (1.3-7.7); Neutrophils % (A) 85 %; RBC 4.72 m/uL (4.30-5.90); WBC 10.4 k/uL (3.8-10.6); WBC (Perox) 9.75
[2017-03-14] MEDS: PIPERACILLIN-TAZOBACTAM 3.375 GM in DEXTROSE/WATER 1 50ML.BAG IVPB SCH ×2 (08:31→17:51)
[2017-03-14] MEDS: SODIUM CHLORIDE 0.9% 1,000 ML IV SCH ×2 (08:40→11:00)
[2017-03-14] MEDS: PANTOPRAZOLE 40 MG/10 ML VIAL IV SCH (08:43)
[2017-03-14] MEDS: HEPARIN SODIUM,PORCINE 5,000 UNIT/ML 1 ML VIAL SQ SCH ×2 (08:43→10:34)
--- NOTE | 2017-03-14 10:27 | P.PN ---
Subjective Principal diagnosis: Abdominal pain hematemesis Status post appendectomy for acute appendicitis intraoperative EGD yesterday with general surgery. No evidence of peptic ulcer disease per EGD possible Neema-Azul tear. Feels better. Afebrile. Abdominal pain improved. No recurrence of hematemesis hematochezia or melena. Hemoglobin 15. White count 10.4. Objective - Vital Signs Vital signs: Vital Signs Temp 97.9 F 03/14/17 08:00 Pulse 84 03/14/17 08:00 Resp 16 03/14/17 08:00 BP 125/82 03/14/17 08:00 Pulse Ox 97 03/14/17 08:00 Intake & Output 03/13/17 03/14/17 03/14/17 18:59 06:59 18:59 Intake Total 1260 300 Output Total 10 800 Balance 1250 -500 Weight 95.1 kg Intake: IV 900 300 Oral 360 Output: Urine 800 Estimated Blood Loss 10 - Exam General appearance: The patient is alert, oriented, in no acute distress. HET: Head is normocephalic and atraumatic. Pupils are equal and reactive. Oropharynx is clear without lesions. Neck: Supple without lymphadenopathy. Trachea midline. Heart: S1 S2. Regular rate and rhythm. Lungs: No crackles or wheezes are heard. Abdomen: Soft, surgical dressings clean dry and intact mild incisional discomfort with bowel sounds. No peritoneal signs. No palpable organomegaly or masses. Extremities: Normal skin color and turgor. No cyanosis, rash, ulceration, clubbing, or edema. Radial and pedal pulses are 2/4 bilaterally. Neurological: No focal deficits. Strength and sensation are grossly intact. - Labs CBC & Chem 7: 03/14/17 06:53 03/13/17 10:51 Labs: Abnormal Lab Results - Last 24 Hours (Table) 03/13/17 03/13/17 03/14/17 Range/Units 10:51 10:51 06:53 WBC 12.8 H (3.8-10.6) k/uL Neutrophils # 9.9 H 8.8 H (1.3-7.7) k/uL Glucose 110 H (74-99) mg/dL ALT 158 H (21-72) U/L Assessment and Plan (1) Abdominal pain Narrative/Plan: Secondary to acute appendicitis status post laparoscopic appendectomy Status: Acute (2) Upper GI hemorrhage Narrative/Plan: Episode of hematemesis 1 suspect Neema-Azul tear status post intraoperative EGD with no evidence of bleeding or peptic ulcer disease Status: Acute Plan: 1. Discharge per medicine/surgery. We'll follow as needed. Assessment and plan a care discussed with Dr. Anderson
[2017-03-14 16:07] VITALS: BP 137/59; PULSE 88; RESP 18; TEMP 97.7
--- NOTE | 2017-03-14 18:50 | P.DS ---
Providers Date of admission: 03/13/17 04:36 Expected date of discharge: 03/14/17 Attending physician: Cailin Hook Consults: 03/13/17 10:58 Consult Physician Routine Consulting Provider: Salazar Valles Consult Reason/Comments: abd. pain/RLQ/umbilical Do you want consulting provider notified?: Yes Primary care physician: Stated None - Discharge Diagnosis(es) (1) Acute appendicitis Patient minute with abdominal pain and upper GI bleed. Underwent a CAT scan which showed acute appendicitis. Yesterday evening the patient underwent upper endoscopy and laparoscopic appendectomy. Suspected source of upper GI bleeding as Neema-Azul tear. Patient doing quite well today. No abdominal pain. Tolerating his diet. He will be discharged today with outpatient follow-up in 1 week. Current Visit: Yes Status: Acute Plan - Discharge Summary New Discharge Prescriptions: New Hydrocodone/Acetaminophen [[place] 5-325] 1 - 2 each PO Q4HR PRN #30 tab PRN Reason: pain Continue Aspirin 325 - 650 mg PO QID PRN PRN Reason: Pain Ibuprofen [Motrin] 400 - 800 mg PO Q6HR PRN PRN Reason: Pain Discharge Medication List Aspirin 325 - 650 mg PO QID PRN 12/16/15 [History] Ibuprofen [Motrin] 400 - 800 mg PO Q6HR PRN 09/01/16 [History] Hydrocodone/Acetaminophen [[place] 5-325] 1 - 2 each PO Q4HR PRN #30 tab 03/13/17 [Rx] Follow up Appointment(s)/Referral(s): Salazar Valles MD [Medical Doctor] - 03/22/17 9:00 am None,Stated [Primary Care Provider] - 1-2 days Patient Instructions/Handouts: Gastrointestinal Bleeding (GEN)
--- NOTE | 2017-03-15 00:56 | P.DS ---
Providers Date of admission: 03/13/17 04:36 Expected date of discharge: 03/14/17 Attending physician: Cailin Hook Consults: 03/13/17 10:58 Consult Physician Routine Consulting Provider: Salazar Valles Consult Reason/Comments: abd. pain/RLQ/umbilical Do you want consulting provider notified?: Yes Primary care physician: Stated None Hospital Course: Discharge diagnoses #1 lower abdominal pain likely due to acute appendicitis. CT of abdomen and pelvis was done. Status post appendectomy laparoscopic #2 coffee-ground emesis due to gastritis. Hemoglobin stable. No active vomiting or symptoms at this time. #3 history of rheumatoid arthritis diagnosis several years ago not on any medication now. #4 DVT prophylaxis. Hospital course:: Patient is a pleasant 37-year-old male with past medical history of rheumatoid arthritis diagnosed when he was very young, currently not on any medications presenting to the emergency department for vomiting blood. Patient woke up around 11:30 with abdominal cramping. Mainly pain is at around umbilical area. Patient had a normal bowel movement. Patient has had nausea. Patient then had an episode with several episodes of hematemesis lasting 1 minute. Patient did have some bright red as well as some dark red and possible clots. No history of vomiting blood previously. Patient has continued intermittent abdominal cramping. No significant NSAID or alcohol use. Patient denied any fever or chills. No recent illnesses. CT of abdomen and pelvis showed mild acute diverticulitis with 8 mm appendicolith. Patient was seen by general surgery and is planning for laparoscopic appendectomy. Patient was continued on pain medications and was seen by general surgery . Patient underwent laparoscopic appendectomy on 03/13/2017 and intraoperative EGD which showed gastritis. continue the Protonix IV. Monitored H&H. Patient' s leukocytosis improved now and is tolerating diet. Pain is well controlled and patient is still for discharge home and follow Dr. Valles in the clinic in a week. Discharge physical examination was done Patient Condition at Discharge: Stable Plan - Discharge Summary New Discharge Prescriptions: New Hydrocodone/Acetaminophen [[place] 5-325] 1 - 2 each PO Q4HR PRN #30 tab PRN Reason: pain Continue Aspirin 325 - 650 mg PO QID PRN PRN Reason: Pain Ibuprofen [Motrin] 400 - 800 mg PO Q6HR PRN PRN Reason: Pain Discharge Medication List Aspirin 325 - 650 mg PO QID PRN 12/16/15 [History] Ibuprofen [Motrin] 400 - 800 mg PO Q6HR PRN 09/01/16 [History] Hydrocodone/Acetaminophen [[place] 5-325] 1 - 2 each PO Q4HR PRN #30 tab 03/13/17 [Rx] Follow up Appointment(s)/Referral(s): Salazar Valles MD [Medical Doctor] - 03/22/17 9:00 am None,Stated [Primary Care Provider] - 1-2 days Patient Instructions/Handouts: Gastrointestinal Bleeding (GEN) Discharge Disposition: HOME SELF-CARE
== END 2017-03-14 18:54 | disposition home or self-care (01) ==
LOC: EC 02:58 → 3OBS 04:36
PROVIDERS: ADMIT Internal Medicine; ATTEND Internal Medicine
DX: K35.80 Unspecified acute appendicitis (principal); M06.9 Rheumatoid arthritis, unspecified; K92.0 Hematemesis; K57.92 Diverticulitis of intestine, part unspecified, without perforation or abscess without bleeding; K29.70 Gastritis, unspecified, without bleeding; K20.8 Other esophagitis; Z81.1 Family history of alcohol abuse and dependence; Z79.82 Long term (current) use of aspirin
CPT/HCPCS: 36415; 74000; 74177; 80053; 82150; 83605; 83690; 85025; 85610; 85730; 86850; 86900; 86901; 88304; 96361; 96374; 96375; 96376; 99285

== ENCOUNTER 2017-12-12 12:12 | Emergency (ER) | payer OTHER ==
[2017-12-12] MEDS ORDERED: SODIUM CHLORIDE 0.9% 1,000 ML IV STA (12:39)
--- NOTE | 2017-12-12 12:44 | ED ---
General Adult HPI - General Chief complaint: Chest Pain Stated complaint: Chest pain Time Seen by Provider: 12/12/17 12:32 Source: patient, RN notes reviewed Mode of arrival: ambulatory Limitations: no limitations - History of Present Illness Initial comments: Patient 37-year-old male significant past medical history for rheumatoid arthritis, presented to the emergency room today with chief complaint of chest pain on and off over the last month. Patient states that he's noticed the symptoms most consistently with after waking up in the morning. He states when he tries to lay back down he noticed that he feels short of breath has some chest discomfort. He states does not have any pain at this time but did have this occur again this morning approximately 7 AM. Patient states there is a family history of cardiac disease. Patient states there is been nothing specific that seems to trigger this. He states it lasted were from 5 minutes to 40 minutes. Patient states last approximate 40 minutes this morning. Patient does admit that he felt some numbness into the left hand. Denies any other complaints at this time. Patient denies any recent fever, chills, shortness of breath, chest pain, back pain, abdominal pain, nausea or vomiting, numbness or tingling, dysuria or hematuria, constipation or diarrhea, headaches or visual changes, or any other complaints. - Related Data Previous Rx's Medication Instructions Recorded amLODIPine [Norvasc] 5 mg PO DAILY #30 tab 12/12/17 Allergies Allergy/AdvReac Type Severity Reaction Status Date / Time No Known Allergies Allergy Verified 12/12/17 12:41 Review of Systems ROS Statement: Those systems with pertinent positive or pertinent negative responses have been documented in the HPI. ROS Other: All systems not noted in ROS Statement are negative. Past Medical History Past Medical History: Rheumatoid Arthritis (RA) History of Any Multi-Drug Resistant Organisms: None Reported Past Surgical History: Appendectomy Additional Past Anesthesia/Blood Transfusion Reaction / Comment(s): Pt has never had surgery Past Psychological History: Anxiety Smoking Status: Never smoker Past Alcohol Use History: None Reported Past Drug Use History: None Reported - Past Family History Mother Additional Family Medical History / Comment(s): Mother has RLS Father Additional Family Medical History / Comment(s): Father is an alcoholic. General Exam - General Exam Comments Initial Comments: General: The patient is awake and alert, in no distress, and does not appear acutely ill. Eye: Pupils are equal, round and reactive to light, extra-ocular movements are intact. No nystagmus. There is normal conjunctiva bilaterally. No signs of icterus. Ears, nose, mouth and throat: There are moist mucous membranes and no oral lesions. Neck: The neck is supple, there is no tenderness or JVD. Cardiovascular: There is a regular rate and rhythm. No murmur, rub or gallop is appreciated. Respiratory: Lungs are clear to auscultation, respirations are non-labored, breath sounds are equal. No wheezes, stridor, rales, or rhonchi. Musculoskeletal: Normal ROM, no tenderness. Strength 5/5. Sensation intact. Pulses equal bilaterally 2+. Neurological: A&O x 3. CN II-XII intact, There are no obvious motor or sensory deficits. Coordination appears grossly intact. Speech is normal. Skin: Skin is warm and dry and no rashes or lesions are noted. Psychiatric: Cooperative, appropriate mood & affect, normal judgment. Limitations: no limitations Course Vital Signs 12/12/17 12/12/17 12/12/17 12:20 12:52 12:57 Temperature 98.3 F Pulse Rate 99 80 Pulse Rate [ 82 Experimental Box Tester ] Respiratory 20 18 20 Rate Blood Pressure 168/111 152/102 O2 Sat by Pulse 99 98 Oximetry 12/12/17 13:34 Temperature Pulse Rate 77 Pulse Rate [ Experimental Box Tester ] Respiratory 18 Rate Blood Pressure 158/102 O2 Sat by Pulse 98 Oximetry EKG Findings - EKG Comments: EKG Findings:: EKG performed at 1231: Shows normal sinus rhythm at 86 bpm. ND interval 132. QRS 82. QT/QTC 350/418. No acute ST changes. Medical Decision Making - Medical Decision Making Patient reexamined at this time shows no signs of distress. Denies any pain at this time. EKG shows no acute changes. Results were discussed with patient. Was discussed with patient about admission to the hospital. States he does not want to stay. States he will follow up outpatient. Patient will sign out AMA. Patient's blood pressure has been mildly elevated here in the emergency room given a prescription for Norvasc to go home - Lab Data Result diagrams: 12/12/17 12:40 12/12/17 12:40 Lab Results 05/16/18 05/16/18 05/16/18 Range/Units 12:40 12:40 12:40 WBC 6.7 (3.8-10.6) k/uL RBC 5.50 (4.30-5.90) m/uL Hgb 17.1 (13.0-17.5) gm/dL Hct 49.3 (39.0-53.0) % MCV 89.7 (80.0-100.0) fL MCH 31.2 (25.0-35.0) pg MCHC 34.7 (31.0-37.0) g/dL RDW 12.1 (11.5-15.5) % Plt Count 258 (150-450) k/uL Neutrophils % 53 % Lymphocytes % 37 % Monocytes % 5 % Eosinophils % 3 % Basophils % 1 % Neutrophils # 3.5 (1.3-7.7) k/uL Lymphocytes # 2.5 (1.0-4.8) k/uL Monocytes # 0.4 (0-1.0) k/uL Eosinophils # 0.2 (0-0.7) k/uL Basophils # 0.0 (0-0.2) k/uL PT (9.0-12.0) sec INR (<1.2) APTT (22.0-30.0) sec Sodium 144 (137-145) mmol/L Potassium 3.8 (3.5-5.1) mmol/L Chloride 101 (98-107) mmol/L Carbon Dioxide 29 (22-30) mmol/L Anion Gap 14 mmol/L BUN 10 (9-20) mg/dL Creatinine 0.81 (0.66-1.25) mg/dL Est GFR (CKD-EPI)AfAm >90 (>60 ml/min/1.73 sqM) Est GFR (CKD-EPI)NonAf >90 (>60 ml/min/1.73 sqM) Glucose 122 H (74-99) mg/dL Calcium 9.5 (8.4-10.2) mg/dL Magnesium 2.1 (1.6-2.3) mg/dL Total Bilirubin 0.6 (0.2-1.3) mg/dL AST 54 (17-59) U/L ALT 138 H (21-72) U/L Alkaline Phosphatase 61 (38-126) U/L Total Creatine Kinase 172 H (55-170) U/L CK-MB (CK-2) 0.6 (0.0-2.4) ng/mL CK-MB (CK-2) Rel Index 0.3 Troponin I <0.012 (0.000-0.034) ng/mL Total Protein 7.3 (6.3-8.2) g/dL Albumin 4.6 (3.5-5.0) g/dL 12/12/17 Range/Units 12:40 WBC (3.8-10.6) k/uL RBC (4.30-5.90) m/uL Hgb (13.0-17.5) gm/dL Hct (39.0-53.0) % MCV (80.0-100.0) fL MCH (25.0-35.0) pg MCHC (31.0-37.0) g/dL RDW (11.5-15.5) % Plt Count (150-450) k/uL Neutrophils % % Lymphocytes % % Monocytes % % Eosinophils % % Basophils % % Neutrophils # (1.3-7.7) k/uL Lymphocytes # (1.0-4.8) k/uL Monocytes # (0-1.0) k/uL Eosinophils # (0-0.7) k/uL Basophils # (0-0.2) k/uL PT 9.7 (9.0-12.0) sec INR 1.0 (<1.2) APTT 23.3 (22.0-30.0) sec Sodium (137-145) mmol/L Potassium (3.5-5.1) mmol/L Chloride (98-107) mmol/L Carbon Dioxide (22-30) mmol/L Anion Gap mmol/L BUN (9-20) mg/dL Creatinine (0.66-1.25) mg/dL Est GFR (CKD-EPI)AfAm (>60 ml/min/1.73 sqM) Est GFR (CKD-EPI)NonAf (>60 ml/min/1.73 sqM) Glucose (74-99) mg/dL Calcium (8.4-10.2) mg/dL Magnesium (1.6-2.3) mg/dL Total Bilirubin (0.2-1.3) mg/dL AST (17-59) U/L ALT (21-72) U/L Alkaline Phosphatase (38-126) U/L Total Creatine Kinase (55-170) U/L CK-MB (CK-2) (0.0-2.4) ng/mL CK-MB (CK-2) Rel Index Troponin I (0.000-0.034) ng/mL Total Protein (6.3-8.2) g/dL Albumin (3.5-5.0) g/dL Disposition Clinical Impression: Chest pain, Elevated blood pressure reading Disposition: HOME SELF-CARE Condition: Good Instructions: Chest Pain (ED) Prescriptions: amLODIPine [Norvasc] 5 mg PO DAILY #30 tab Is patient prescribed a controlled substance at d/c from ED?: No Referrals: None,Stated [Primary Care Provider] - 1-2 days Pepe Bolton DO [STAFF PHYSICIAN] - 1-2 days Time of Disposition: 14:25
[2017-12-12 13:04] LABS: Basophils % (A) 1 %; Eosinophils # (A) 0.2 k/uL (0-0.7); Eosinophils % (A) 3 %; HCT 49.3 % (39.0-53.0); HGB 17.1 gm/dL (13.0-17.5); Lymphocytes # (A) 2.5 k/uL (1.0-4.8); Lymphocytes % (A) 37 %; MCH 31.2 pg (25.0-35.0); MCHC 34.7 g/dL (31.0-37.0); MCV 89.7 fL (80.0-100.0); Mean Platelet Volume 8.2; Monocytes # (A) 0.4 k/uL (0-1.0); Monocytes % (A) 5 %; Neutrophils # (A) 3.5 k/uL (1.3-7.7); Neutrophils % (A) 53 %; Platelet Count 258 k/uL (150-450); RDW 12.1 % (11.5-15.5); WBC 6.7 k/uL (3.8-10.6)
--- NOTE | 2017-12-12 13:04 | XR ---
EXAMINATION TYPE: XR chest 2V DATE OF EXAM: 12/12/2017 COMPARISON: NONE HISTORY: Chest pain for 2 months. TECHNIQUE: Frontal and lateral views of the chest are obtained. FINDINGS: There is no focal air space opacity, pleural effusion, or pneumothorax seen. The cardiac silhouette size is within normal limits. The osseous structures are intact. IMPRESSION: No acute cardiopulmonary process.
[2017-12-12 13:15] LABS: Partial Thromboplastin Time 23.3 sec (22.0-30.0); Prothrombin Time 9.7 sec (9.0-12.0)
[2017-12-12 13:20] LABS: ALT 138 U/L (21-72); AST 54 U/L (17-59); Albumin 4.6 g/dL (3.5-5.0); Alkaline Phosphatase 61 U/L (38-126); Anion Gap 14 mmol/L; Blood Urea Nitrogen 10 mg/dL (9-20); Calcium 9.5 mg/dL (8.4-10.2); Carbon Dioxide 29 mmol/L (22-30); Chloride 101 mmol/L (98-107); Glucose 122 mg/dL (74-99); Magnesium 2.1 mg/dL (1.6-2.3); Potassium 3.8 mmol/L (3.5-5.1); Sodium 144 mmol/L (137-145); Total Bilirubin 0.6 mg/dL (0.2-1.3); Total Protein 7.3 g/dL (6.3-8.2)
[2017-12-12 13:22] LABS: Creatine Kinase 172 U/L (55-170)
[2017-12-12 13:34] LABS: Creatine Kinase MB 0.6 ng/mL (0.0-2.4); Troponin I <0.012 ng/mL (0.000-0.034)
[2017-12-12 13:36] VITALS: RESP 18
[2017-12-12] MEDS ORDERED: NITROGLYCERIN OINT 1 INCH/GM PACKET TOPICAL STA (14:06)
[2017-12-12] MEDS ORDERED: ASPIRIN 81 MG PO STA (14:06)
[2017-12-12 14:49] VITALS: BP 159/90; PULSE 82; TEMP 98.7
== END 2017-12-12 14:47 | disposition home or self-care (01) ==
LOC: EC 12:12
DX: R07.89 Other chest pain (principal); R03.0 Elevated blood-pressure reading, without diagnosis of hypertension; R20.0 Anesthesia of skin; R06.02 Shortness of breath; Z82.49 Family history of ischemic heart disease and other diseases of the circulatory system
CPT/HCPCS: 36415; 71046; 80053; 82550; 82553; 83735; 84484; 85025; 85610; 85730; 93005; 96360; 99285

== ENCOUNTER 2018-07-20 23:44 | Emergency (ER) | payer OTHER ==
[2018-07-20 23:57] VITALS: BP 127/89; PULSE 95; RESP 20; TEMP 98.2
[2018-07-21] MEDS ORDERED: SODIUM CHLORIDE 0.9% 1,000 ML IV STA (00:34)
[2018-07-21 01:05] LABS: MCV 92.7 fL (80.0-100.0)
[2018-07-21 01:06] LABS: Basophils # (A) 0.1 k/uL (0-0.2); Basophils % (A) 1 %; Eosinophils # (A) 0.3 k/uL (0-0.7); Eosinophils % (A) 3 %; HCT 46.5 % (39.0-53.0); HGB 15.7 gm/dL (13.0-17.5); Lymphocytes # (A) 3.8 k/uL (1.0-4.8); Lymphocytes % (A) 43 %; MCH 31.4 pg (25.0-35.0); MCHC 33.8 g/dL (31.0-37.0); Monocytes # (A) 0.4 k/uL (0-1.0); Monocytes % (A) 4 %; Neutrophils # (A) 4.2 k/uL (1.3-7.7); Neutrophils % (A) 48 %; Platelet Count 271 k/uL (150-450); RBC 5.02 m/uL (4.30-5.90); RDW 12.1 % (11.5-15.5); WBC 8.8 k/uL (3.8-10.6)
--- NOTE | 2018-07-21 01:12 | ED ---
General Adult HPI - General Chief complaint: Abdominal Pain Stated complaint: Abd Pain Time Seen by Provider: 07/21/18 00:34 Source: patient, RN notes reviewed Mode of arrival: ambulatory Limitations: no limitations - History of Present Illness Initial comments: 38-year-old male with a past medical history of hypertension and rheumatoid arthritis presents to the emergency department for a chief complaint of abdominal cramping. Patient states his cramping has been ongoing throughout "his entire life" but states that over the past 4 days has been consistent rather than intermittent. Patient states the cramping is in his lower abdomen. He states this is somewhat painful rating pain at a 5/10. Patient states that he has had about 6 stools daily since he was a child. He states that having a bowel movement relieves cramping. He denies any aggravating factors. Patient states over the past 4 days his stools have been consistent with his usual stools. He denies any dysuria. Patient denies any fevers or chills. He denies any melena or hematochezia. Patient states he knows he needs to see a GI doctor but has not been able to do so. Patient has no other complaints at this time including shortness of breath, chest pain, nausea or vomiting, headache, or visual changes. - Related Data Previous Rx's Medication Instructions Recorded amLODIPine [Norvasc] 5 mg PO DAILY #30 tab 12/12/17 Dicyclomine [Bentyl] 20 mg PO BID PRN #20 tablet 07/21/18 Allergies Allergy/AdvReac Type Severity Reaction Status Date / Time No Known Allergies Allergy Verified 07/20/18 23:57 Review of Systems ROS Statement: Those systems with pertinent positive or pertinent negative responses have been documented in the HPI. ROS Other: All systems not noted in ROS Statement are negative. Past Medical History Past Medical History: Hypertension, Rheumatoid Arthritis (RA) History of Any Multi-Drug Resistant Organisms: None Reported Past Surgical History: Appendectomy Additional Past Anesthesia/Blood Transfusion Reaction / Comment(s): Pt has never had surgery Past Psychological History: Anxiety Smoking Status: Never smoker Past Alcohol Use History: None Reported Past Drug Use History: None Reported - Past Family History Mother Additional Family Medical History / Comment(s): Mother has RLS Father Additional Family Medical History / Comment(s): Father is an alcoholic. General Exam Limitations: no limitations General appearance: alert, in no apparent distress Head exam: Present: atraumatic, normocephalic, normal inspection Eye exam: Present: normal appearance, PERRL, EOMI. Absent: scleral icterus, conjunctival injection, periorbital swelling ENT exam: Present: normal exam, mucous membranes moist Neck exam: Present: normal inspection, full ROM. Absent: tenderness, meningismus, lymphadenopathy Respiratory exam: Present: normal lung sounds bilaterally. Absent: respiratory distress, wheezes, rales, rhonchi, stridor Cardiovascular Exam: Present: regular rate, normal rhythm, normal heart sounds. Absent: systolic murmur, diastolic murmur, rubs, gallop, clicks GI/Abdominal exam: Present: soft, tenderness (Mild tenderness noted throughout the lower abdomen), normal bowel sounds. Absent: distended, guarding, rebound, rigid Neurological exam: Present: alert, oriented X3, CN II-XII intact Psychiatric exam: Present: normal affect, normal mood Course Vital Signs 07/20/18 23:54 Temperature 98.2 F Pulse Rate 95 Respiratory 20 Rate Blood Pressure 127/89 O2 Sat by Pulse 98 Oximetry Medical Decision Making - Medical Decision Making 38-year-old male presents to the emergency department for a chief complaint of lower abdominal cramping that has worsened over the past 4 days. Patient states this has been consistent throughout his entire life. He states that he generally has 6 stools a day and over the past 4 days this has been consistent with normal stools. Patient states he knows he needs to see a GI doctor but has been unable to do so. On exam patient has minimal lower abdominal tenderness, generally unremarkable. He denies any dysuria. Vitals are within acceptable limits. CBC and CMP are unremarkable. Minimal transaminitis which has improved since last set of labs. CT of the abdomen and pelvis is negative. At this time I discussed with the patient that it is important that he sees a GI specialist as he may have underlying irritable bowel syndrome or other pathology that may require a scope. Patient agrees that he will do this. He was given a referral. He was given a prescription for Bentyl. Patient will return if he has any worsening symptoms. - Lab Data Result diagrams: 07/21/18 00:00 07/21/18 00:00 Lab Results 07/21/18 07/21/18 Range/Units 00:00 00:00 WBC 8.8 (3.8-10.6) k/uL RBC 5.02 (4.30-5.90) m/uL Hgb 15.7 (13.0-17.5) gm/dL Hct 46.5 (39.0-53.0) % MCV 92.7 (80.0-100.0) fL MCH 31.4 (25.0-35.0) pg MCHC 33.8 (31.0-37.0) g/dL RDW 12.1 (11.5-15.5) % Plt Count 271 (150-450) k/uL Neutrophils % 48 % Lymphocytes % 43 % Monocytes % 4 % Eosinophils % 3 % Basophils % 1 % Neutrophils # 4.2 (1.3-7.7) k/uL Lymphocytes # 3.8 (1.0-4.8) k/uL Monocytes # 0.4 (0-1.0) k/uL Eosinophils # 0.3 (0-0.7) k/uL Basophils # 0.1 (0-0.2) k/uL Sodium 139 (137-145) mmol/L Potassium 4.6 (3.5-5.1) mmol/L Chloride 101 (98-107) mmol/L Carbon Dioxide 27 (22-30) mmol/L Anion Gap 11 mmol/L BUN 19 (9-20) mg/dL Creatinine 1.00 (0.66-1.25) mg/dL Est GFR (CKD-EPI)AfAm >90 (>60 ml/min/1.73 sqM) Est GFR (CKD-EPI)NonAf >90 (>60 ml/min/1.73 sqM) Glucose 101 H (74-99) mg/dL Calcium 9.7 (8.4-10.2) mg/dL Total Bilirubin 0.8 (0.2-1.3) mg/dL AST 67 H (17-59) U/L ALT 106 H (21-72) U/L Alkaline Phosphatase 46 (38-126) U/L Total Protein 8.1 (6.3-8.2) g/dL Albumin 4.9 (3.5-5.0) g/dL Amylase 66 (30-110) U/L Lipase 210 (23-300) U/L Disposition Clinical Impression: Abdominal cramping Disposition: HOME SELF-CARE Condition: Good Instructions: Abdominal Pain (ED) Additional Instructions: Please take Bentyl for abdominal cramping and pain as directed. Please follow up with GI and primary care in 1-2 days. Please return to the emergency department if you've any worsening symptoms. Prescriptions: Dicyclomine [Bentyl] 20 mg PO BID PRN #20 tablet PRN Reason: Pain Is patient prescribed a controlled substance at d/c from ED?: No Referrals: Rocky Coronado MD [Primary Care Provider] - 1-2 days Suzanne Anderson MD [STAFF PHYSICIAN] - 1-2 days Time of Disposition: 02:37
[2018-07-21 01:15] LABS: ALT 106 U/L (21-72); AST 67 U/L (17-59); Albumin 4.9 g/dL (3.5-5.0); Alkaline Phosphatase 46 U/L (38-126); Amylase 66 U/L (30-110); Anion Gap 11 mmol/L; Blood Urea Nitrogen 19 mg/dL (9-20); Calcium 9.7 mg/dL (8.4-10.2); Carbon Dioxide 27 mmol/L (22-30); Chloride 101 mmol/L (98-107); Glucose 101 mg/dL (74-99); Lipase 210 U/L (23-300); Sodium 139 mmol/L (137-145); Total Bilirubin 0.8 mg/dL (0.2-1.3); Total Protein 8.1 g/dL (6.3-8.2)
[2018-07-21 01:19] LABS: Potassium 4.6 mmol/L (3.5-5.1)
--- NOTE | 2018-07-21 01:30 | CT ---
EXAMINATION TYPE: CT abdomen pelvis w con DATE OF EXAM: 07/21/2018 COMPARISON: 03/13/2017 HISTORY: Lower abd pain CT DLP: 987.80 mGycm Automated exposure control for dose reduction was used. TECHNIQUE: Helical acquisition of images was performed from the lung bases through the pelvis. CONTRAST: Performed without Oral Contrast and with IV Contrast, patient injected with 100 mL of Isovue 300. FINDINGS: Lung bases are clear. There is no pleural effusion. Heart size is normal. Stomach appears normal. Colleen er spleen pancreas gallbladder appear normal. Gallbladder is contracted. Bile ducts are not dilated. There is no adrenal mass. Kidneys show satisfactory contrast opacification. There is no hydronephrosi s. Ureters are not dilated. There are surgical clips in the right lower quadrant. There is no retrope ritoneal adenopathy. Bladder distends smoothly. There is no inguinal hernia. There is no free fluid i n the pelvis. I see no intestinal wall thickening. There are no dilated loops. There is no mesenteric edema. There is small umbilical hernia that contains fat. Lumbar vertebra have normal spacing and alignment. Posterior elements are intact. Bony pelvis is inta ct. IMPRESSION: NEGATIVE CT SCAN ABDOMEN AND PELVIS. SURGICAL CLIPS FROM APPENDECTOMY. THERE IS CLEARING OF THE ATELE CTASIS AT THE LUNG BASES COMPARED TO OLD EXAM. I DO NOT SEE A CAUSE FOR LOWER ABDOMINAL PAIN.
[2018-07-21] MEDS ORDERED: KETOROLAC 30 MG/ML 1 ML VIAL IVP STA (02:28)
== END 2018-07-21 02:55 | disposition home or self-care (01) ==
LOC: EC 23:44
DX: R10.30 Lower abdominal pain, unspecified (principal); Z90.49 Acquired absence of other specified parts of digestive tract
CPT/HCPCS: 36415; 80053; 82150; 83690; 85025; 74177; 99284; 96374; 96361; J1885; Q9967

== ENCOUNTER 2018-07-27 11:43 | Emergency (ER) | payer OTHER ==
[2018-07-27 11:51] VITALS: BP 123/74; PULSE 80; RESP 20; TEMP 98.1
--- NOTE | 2018-07-27 13:01 | ED ---
General Adult HPI - General Chief complaint: ENT Stated complaint: Sore throat Source: patient Mode of arrival: ambulatory Limitations: no limitations - History of Present Illness Initial comments: Dictation was produced using [employer] dictation software. please excuse any grammatical, word or spelling errors. Chief Complaint: 78-year-old male past medical history of rheumatoid arthritis presents with sore throat. History of Present Illness: He is a 38-year-old male past medical history rheumatoid arthritis presents with sore throat. Patient cc had this on multiple occasions. Patient reports having history of success with Bactrim for his sore throat. Patient states that he wants a prescription for this. Patient denies any fever, chills or night sweats. He states he had this for several weeks. Patient has a respiratory distress. The ROS documented in this emergency department record has been reviewed and confirmed by me. Those systems with pertinent positive or negative responses have been documented in the HPI. All other systems are other negative and/or noncontributory. - Related Data Previous Rx's Medication Instructions Recorded amLODIPine [Norvasc] 5 mg PO DAILY #30 tab 12/12/17 Dicyclomine [Bentyl] 20 mg PO BID PRN #20 tablet 07/21/18 Sulfamethox-Tmp 800-160Mg [Bactrim 1 tab PO Q12HR 7 Days #14 tab 07/27/18 DS 800-160 mg] Allergies Allergy/AdvReac Type Severity Reaction Status Date / Time No Known Allergies Allergy Verified 07/27/18 11:51 Review of Systems ROS Statement: Those systems with pertinent positive or pertinent negative responses have been documented in the HPI. ROS Other: All systems not noted in ROS Statement are negative. Past Medical History Past Medical History: Hypertension, Rheumatoid Arthritis (RA) History of Any Multi-Drug Resistant Organisms: None Reported Past Surgical History: Appendectomy Additional Past Anesthesia/Blood Transfusion Reaction / Comment(s): Pt has never had surgery Past Psychological History: Anxiety Smoking Status: Never smoker Past Alcohol Use History: Occasional Past Drug Use History: None Reported - Past Family History Mother Additional Family Medical History / Comment(s): Mother has RLS Father Additional Family Medical History / Comment(s): Father is an alcoholic. General Exam - General Exam Comments Initial Comments: PHYSICAL EXAM: General Impression: Alert and oriented x3, not in acute distress HEENT: Normocephalic atraumatic, extra-ocular movements intact, pupils equal and reactive to light bilaterally, mucous membranes moist, oropharynx wide-open , mild erythema Cardiovascular: Heart regular rate and rhythm, S1&S2 audible, no murmurs, rubs or gallops Chest: Lungs clear to auscultation bilaterally, no rhonchi, no wheeze, no rales Abdomen: Bowel sounds present, abdomen soft, non-tender, non-distended, no organomegaly Musculoskeletal: Pulses present and equal in all extremities, no peripheral edema Motor: Power 5/5 bilaterally, no focal deficits noted Neurological: CN II-XII grossly intact, no focal motor or sensory deficits noted Skin: Intact with no visualized rashes Psych: Normal affect and mood Limitations: no limitations Course Vital Signs 07/27/18 11:49 Temperature 98.1 F Pulse Rate 80 Respiratory 20 Rate Blood Pressure 123/74 O2 Sat by Pulse 98 Oximetry Medical Decision Making - Medical Decision Making ED course: 40-year-old male presents with request for prescription of Bactrim to treat his sore throat. He does report having success with this in the past. Patient is well-appearing. Physical examination is benign. Vital signs are stable. Blood culture obtained. Patient prescription for Bactrim. Told to follow-up with his primary care physician upon discharge. Disposition Clinical Impression: Pharyngitis Disposition: HOME SELF-CARE Instructions: Pharyngitis (ED) Prescriptions: Sulfamethox-Tmp 800-160Mg [Bactrim DS 800-160 mg] 1 tab PO Q12HR 7 Days #14 tab Is patient prescribed a controlled substance at d/c from ED?: No Referrals: Rocky Coronado MD [Primary Care Provider] - 1-2 days Time of Disposition: 13:00
== END 2018-07-27 13:06 | disposition home or self-care (01) ==
LOC: EC 11:43
DX: J02.9 Acute pharyngitis, unspecified (principal); R06.03 Acute respiratory distress
CPT/HCPCS: 87070; 99283

== ENCOUNTER 2020-10-08 20:20 | Emergency (ER) | payer OTHER ==
[2020-10-08 20:33] VITALS: TEMP 99.6
[2020-10-08] MEDS ORDERED: predniSONE 50 MG TAB PO STA (21:14)
[2020-10-08] MEDS ORDERED: KETOROLAC 15 MG/ML 1 ML VIAL IM STA (21:14)
--- NOTE | 2020-10-08 21:40 | ED ---
General Adult HPI - General Chief complaint: Shortness of Breath Stated complaint: Fever/cough Time Seen by Provider: 10/08/20 20:44 Source: patient Mode of arrival: ambulatory Limitations: no limitations - History of Present Illness Initial comments: 40-year-old male patient presents to the emergency department today for evaluation of cough, congestion, fever. States his been sick for the last 12 days with cough. States fever started today. States his children have been sick with similar symptoms. He is concerned he may have COVID-19. He denies any sputum production or hemoptysis. States he does have some chest tightness and muscle soreness from coughing. Denies nausea or vomiting. Denies any constipation but states he did have a loose bowel movement this morning. Denies rash. Patient denies any recent abdominal pain, diarrhea, constipation, back pain, numbness, tingling, dizziness, weakness, hematuria, dysuria, urinary urgency, urinary frequency, headache, visual changes, or any other complaints. - Related Data Home Medications Medication Instructions Recorded Confirmed Lisinopril-Hctz 10-12.5 mg 1 tab PO DAILY 07/27/18 07/27/18 [Zestoretic 10-12.5] Naproxen Sodium [Aleve] 440 mg PO Q12HR 07/27/18 07/27/18 Previous Rx's Medication Instructions Recorded Sulfamethox-Tmp 800-160Mg [Bactrim 1 tab PO Q12HR 7 Days #14 tab 07/27/18 DS 800-160 mg] Ibuprofen [Motrin] 600 mg PO Q8HR PRN #30 tab 10/08/20 Ondansetron [Zofran ODT] 4 mg PO Q8HR PRN #10 tab 10/08/20 predniSONE 50 mg PO DAILY #5 tablet 10/08/20 Allergies Allergy/AdvReac Type Severity Reaction Status Date / Time No Known Allergies Allergy Verified 10/08/20 20:33 Review of Systems ROS Statement: Those systems with pertinent positive or pertinent negative responses have been documented in the HPI. ROS Other: All systems not noted in ROS Statement are negative. Past Medical History Past Medical History: Hypertension, Rheumatoid Arthritis (RA) History of Any Multi-Drug Resistant Organisms: None Reported Past Surgical History: Appendectomy Additional Past Anesthesia/Blood Transfusion Reaction / Comment(s): Pt has never had surgery Past Psychological History: Anxiety Smoking Status: Never smoker Past Alcohol Use History: Occasional Past Drug Use History: None Reported - Past Family History Mother Additional Family Medical History / Comment(s): Mother has RLS Father Additional Family Medical History / Comment(s): Father is an alcoholic. General Exam Limitations: no limitations General appearance: alert, in no apparent distress, other (Physical well- developed, well-nourished adult male patient in no acute distress. Vital signs upon presentation are temperature 99.6F, pulse 98, respirations 20, blood pressure 142/90, pulse ox 97% on room air.) Eye exam: Present: normal appearance, PERRL, EOMI. Absent: scleral icterus, conjunctival injection, periorbital swelling ENT exam: Present: normal exam, normal oropharynx, mucous membranes moist Respiratory exam: Present: normal lung sounds bilaterally. Absent: respiratory distress, wheezes, rales, rhonchi, stridor Cardiovascular Exam: Present: regular rate, normal rhythm, normal heart sounds. Absent: systolic murmur, diastolic murmur, rubs, gallop, clicks GI/Abdominal exam: Present: soft, normal bowel sounds. Absent: distended, tenderness, guarding, rebound, rigid Neurological exam: Present: alert, oriented X3, CN II-XII intact Psychiatric exam: Present: normal affect, normal mood Skin exam: Present: warm, dry, intact, normal color. Absent: rash Course Vital Signs 10/08/20 10/08/20 10/08/20 20:29 21:39 22:44 Temperature 99.6 F Pulse Rate 98 106 H Respiratory 20 19 16 Rate Blood Pressure 142/90 165/113 O2 Sat by Pulse 97 96 Oximetry Medical Decision Making - Medical Decision Making 40-year-old male patient percents to the emergency department today for evaluation of coughing and fever. Physical examination reveals clear equal lung sounds. Did have a harsh persistent cough. Vital signs were unremarkable normal oxygen saturation. Blood pressures are somewhat elevated, he is waiting to get into his doctor to get a refill on his blood pressure medication. Chest x-ray was negative. He did test positive for COVID-19. He will be started on steroids. Discharged with instructions to obtain [id number] vitamins. He is given Zofran for nausea. Is instructed to follow-up with his primary care physician for recheck in 1-2 days. He is instructed to quarantine for 10 days or until symptoms resolve. Return parameters were discussed in detail. He verbalizes understanding and agrees this plan. Case discussed with my attending Dr. Souza. - Lab Data Lab Results 10/08/20 Range/Units 21:34 Coronavirus (PCR) Detected A (Not Detectd) - Radiology Data Radiology results: report reviewed, image reviewed One view x-ray of the chest is obtained. Report is reviewed in its entirety. Impression by Dr. Wyman shows slight increased interstitial density compared to old exam. No pulmonary consolidation or heart failure. Disposition Clinical Impression: COVID-19 Disposition: HOME SELF-CARE Condition: Good Instructions (If sedation given, give patient instructions): Coronavirus Disease 2019 (COVID-19) Additional Instructions: Take medications as directed. Consider obtaining [id number] vitamin C, vitamin D 3, and zinc. Increase fluids and rest. Follow-up with your primary care physician for recheck in 1-2 days. Quarantine for 10 days from onset of fever. Return to the emergency department for any new, worsening, or concerning symptoms. Prescriptions: Ibuprofen [Motrin] 600 mg PO Q8HR PRN #30 tab PRN Reason: Pain predniSONE 50 mg PO DAILY #5 tablet Ondansetron [Zofran ODT] 4 mg PO Q8HR PRN #10 tab PRN Reason: Nausea Is patient prescribed a controlled substance at d/c from ED?: No Referrals: Rocky Coronado MD [Primary Care Provider] - 1-2 days Time of Disposition: 22:35
--- NOTE | 2020-10-08 21:56 | XR ---
EXAMINATION TYPE: XR chest 1V DATE OF EXAM: 10/08/2020 COMPARISON: 12/12/2017 HISTORY: Cough and fever TECHNIQUE: FINDINGS: There is slight coarsening of interstitial markings. Heart size is normal. There are no hil ar masses. Mediastinum is normal. IMPRESSION: Slight increased interstitial density compared to old exam. No pulmonary consolidation or heart failure.
[2020-10-08] MEDS ORDERED: ONDANSETRON 4 MG ODT STARTER PACK 2 TAB BTL PO STA (22:33)
[2020-10-08 22:45] VITALS: BP 165/113; PULSE 106; RESP 16
== END 2020-10-08 22:45 | disposition home or self-care (01) ==
LOC: EC 20:20
DX: U07.1 COVID-19 (principal); I10 Essential (primary) hypertension; Z79.1 Long term (current) use of non-steroidal anti-inflammatories (NSAID); Z79.899 Other long term (current) drug therapy; F41.9 Anxiety disorder, unspecified
CPT/HCPCS: 87635; 71045; 99285; 96372; J1885; S0119; J7512

== ENCOUNTER 2021-11-27 12:58 | Emergency (ER) | payer MEDICAID ==
[2021-11-27 13:03] VITALS: RESP 18; TEMP 98.4
[2021-11-27] MEDS ORDERED: SODIUM CHLORIDE 0.9% 1,000 ML IV STA (13:35)
[2021-11-27 13:55] LABS: Appearance,Urine Clear (Clear); Bilirubin,Urine Negative (Negative); Blood,Urine Negative (Negative); Color,Urine Light Yellow; Glucose,Urine (UA) Negative (Negative); Ketones,Urine Negative (Negative); Leukocyte Esterase,Urine Negative (Negative); Nitrite,Urine Negative (Negative); PH, Urine 6.5 (5.0-8.0); Protein,Urine Negative (Negative); Specific Gravity,Urine 1.006 (1.001-1.035); Urobilinogen,Urine <2.0 mg/dL (<2.0)
[2021-11-27 14:00] LABS: Basophils # (A) 0.1 k/uL (0-0.2); Basophils % (A) 1 %; Eosinophils # (A) 0.3 k/uL (0-0.7); Eosinophils % (A) 3 %; HCT 48.9 % (39.0-53.0); HGB 16.4 gm/dL (13.0-17.5); Lymphocytes # (A) 2.7 k/uL (1.0-4.8); Lymphocytes % (A) 33 %; MCH 31.3 pg (25.0-35.0); MCHC 33.5 g/dL (31.0-37.0); MCV 93.4 fL (80.0-100.0); Mean Platelet Volume 8.2; Monocytes # (A) 0.3 k/uL (0-1.0); Monocytes % (A) 4 %; Neutrophils # (A) 4.8 k/uL (1.3-7.7); Neutrophils % (A) 58 %; Platelet Count 262 k/uL (150-450); RBC 5.23 m/uL (4.30-5.90); RDW 12.6 % (11.5-15.5); WBC 8.2 k/uL (3.8-10.6)
--- NOTE | 2021-11-27 14:12 | CT ---
EXAMINATION TYPE: CT abdomen pelvis wo con DATE OF EXAM: 11/27/2021 COMPARISON: None INDICATION: rt flank pain and hematuria DLP: 860.8 mGycm, Automated exposure control for dose reduction was used. CONTRAST: 0 mL of Isovue 300. Study performed without Oral Contrast TECHNIQUE: Axial images were obtained from above the diaphragm to the pubic rami in the axial plane a t 5 mm thick sections. Reconstructed images are reviewed on the computer in the coronal plane. FINDINGS: Limited CT sections are obtained the lung bases. The lung bases are clear. CT ABDOMEN: Liver: Mild fatty infiltration is present throughout the liver. No discrete masses are evident. Spleen: Normal. Splenule is at the splenic hilum. Pancreas: Normal Adrenal glands: The adrenal glands are normal. Gallbladder: Decompressed Kidneys: There is an obstructing proximal right ureteral stone measuring 0.5 cm. Series 201 image 51. Mild right hydronephrosis is present.. No cysts are present. Aorta: Normal Inferior vena cava: Normal. CT PELVIS: Loops of bowel within the abdomen and pelvis are normal. The diverticuli within the sigmoid colon. No acute diverticulitis is evident. The study is without oral contrast limiting bowel evaluation. Appendix: There may be postsurgical change or contrast within the appendix. No suspicious inflammator y changes evident. No suspicious dilated tubular structure evident. Urinary bladder: Normal. Genitourinary structures: Prostate is slightly prominent Osseous structures: No suspicious lytic or sclerotic lesions. IMPRESSIONS: 1. Obstructing 0.5 cm proximal right ureteral stone with mild right hydronephrosis. 2. Mild fatty infiltration the liver.
[2021-11-27 14:14] LABS: ALT 122 U/L (4-49); AST 43 U/L (17-59); African American GFR (CKD) >90 (>60 ml/min/1.73 sqM); Albumin 4.6 g/dL (3.5-5.0); Alkaline Phosphatase 70 U/L (38-126); Amylase 77 U/L (30-110); Anion Gap 9 mmol/L; Blood Urea Nitrogen 13 mg/dL (9-20); Calcium 9.1 mg/dL (8.4-10.2); Carbon Dioxide 27 mmol/L (22-30); Chloride 103 mmol/L (98-107); Glucose 88 mg/dL (74-99); Lipase 202 U/L (23-300); Non-African American GFR(CKD) >90 (>60 ml/min/1.73 sqM); Sodium 139 mmol/L (137-145); Total Bilirubin 0.8 mg/dL (0.2-1.3); Total Protein 7.7 g/dL (6.3-8.2)
[2021-11-27] MEDS ORDERED: ACET/COD 300 MG/30 MG STARTER PACK 6 TAB BTL PO STA (14:19)
--- NOTE | 2021-11-27 14:19 | ED ---
Male Urogenital HPI - General Chief complaint: Urogenital Stated complaint: Blood in urine Time Seen by Provider: 11/27/21 13:04 Source: patient, RN notes reviewed Mode of arrival: ambulatory Limitations: no limitations - History of Present Illness Initial comments: This is a 41-year-old male presents emergency Department chief complaint right flank pain. Patient states on Sunday had severe pain states she is in tears to his was causing him a sprain but it did eventually alleviate. Patient states that he went to urgent care today because he noticed the blood in his urine this sample here for further workup. Patient states she has no history kidney stones. He states his pain essentially gone patient denies any nausea vomiting diarrhea constipation patient offers no other complaints - Related Data Previous Rx's Medication Instructions Recorded Ketorolac [Toradol] 10 mg PO Q8HR #15 tab 11/27/21 Ondansetron Odt [Zofran Odt] 4 mg PO Q8HR PRN #10 tab 11/27/21 Tamsulosin [Flomax] 0.4 mg PO DAILY #7 cap 11/27/21 Allergies Allergy/AdvReac Type Severity Reaction Status Date / Time No Known Allergies Allergy Verified 11/27/21 13:03 Review of Systems ROS Statement: Those systems with pertinent positive or pertinent negative responses have been documented in the HPI. ROS Other: All systems not noted in ROS Statement are negative. Past Medical History Past Medical History: Hypertension, Rheumatoid Arthritis (RA) Additional Past Medical History / Comment(s): geographical tongue History of Any Multi-Drug Resistant Organisms: None Reported Past Surgical History: Appendectomy Additional Past Anesthesia/Blood Transfusion Reaction / Comment(s): Pt has never had surgery Past Psychological History: Anxiety Smoking Status: Never smoker Past Alcohol Use History: Occasional Past Drug Use History: None Reported - Past Family History Mother Additional Family Medical History / Comment(s): Mother has RLS Father Additional Family Medical History / Comment(s): Father is an alcoholic. General Exam Limitations: no limitations General appearance: alert, in no apparent distress Head exam: Present: atraumatic, normocephalic, normal inspection Eye exam: Present: normal appearance, PERRL, EOMI. Absent: scleral icterus, conjunctival injection, periorbital swelling ENT exam: Present: normal exam, mucous membranes moist Neck exam: Present: normal inspection, full ROM. Absent: tenderness, meningis mus, lymphadenopathy Respiratory exam: Present: normal lung sounds bilaterally. Absent: respiratory distress, wheezes, rales, rhonchi, stridor Cardiovascular Exam: Present: regular rate, normal rhythm, normal heart sounds. Absent: systolic murmur, diastolic murmur, rubs, gallop, clicks GI/Abdominal exam: Present: soft, normal bowel sounds. Absent: distended, tenderness, guarding, rebound, rigid Back exam: Absent: CVA tenderness (R), CVA tenderness (L) Neurological exam: Present: alert Skin exam: Present: warm, dry, intact, normal color. Absent: rash Course Vital Signs 11/27/21 12:59 Temperature 98.4 F Pulse Rate 99 Respiratory 18 Rate Blood Pressure 160/101 O2 Sat by Pulse 96 Oximetry Medical Decision Making - Medical Decision Making 41-year-old presented for right flank pain, hematuria CT shows evidence of 5 mm proximal ureteral stone. Patient is in no complaints of pain. Patient will be discharged with follow-up return parameters were discussed. - Lab Data Result diagrams: 11/27/21 13:44 11/27/21 13:44 Lab Results 11/27/21 11/27/21 11/27/21 Range/Units 13:44 13:44 13:44 WBC 8.2 (3.8-10.6) k/uL RBC 5.23 (4.30-5.90) m/uL Hgb 16.4 (13.0-17.5) gm/dL Hct 48.9 (39.0-53.0) % MCV 93.4 (80.0-100.0) fL MCH 31.3 (25.0-35.0) pg MCHC 33.5 (31.0-37.0) g/dL RDW 12.6 (11.5-15.5) % Plt Count 262 (150-450) k/uL MPV 8.2 Neutrophils % 58 % Lymphocytes % 33 % Monocytes % 4 % Eosinophils % 3 % Basophils % 1 % Neutrophils # 4.8 (1.3-7.7) k/uL Lymphocytes # 2.7 (1.0-4.8) k/uL Monocytes # 0.3 (0-1.0) k/uL Eosinophils # 0.3 (0-0.7) k/uL Basophils # 0.1 (0-0.2) k/uL Sodium 139 (137-145) mmol/L Potassium 4.0 (3.5-5.1) mmol/L Chloride 103 (98-107) mmol/L Carbon Dioxide 27 (22-30) mmol/L Anion Gap 9 mmol/L BUN 13 (9-20) mg/dL Creatinine 0.87 (0.66-1.25) mg/dL Est GFR (CKD-EPI)AfAm >90 (>60 ml/min/1.73 sqM) Est GFR (CKD-EPI)NonAf >90 (>60 ml/min/1.73 sqM) Glucose 88 (74-99) mg/dL Calcium 9.1 (8.4-10.2) mg/dL Total Bilirubin 0.8 (0.2-1.3) mg/dL AST 43 (17-59) U/L ALT 122 H (4-49) U/L Alkaline Phosphatase 70 (38-126) U/L Total Protein 7.7 (6.3-8.2) g/dL Albumin 4.6 (3.5-5.0) g/dL Amylase 77 (30-110) U/L Lipase 202 (23-300) U/L Urine Color Light Yellow Urine Appearance Clear (Clear) Urine pH 6.5 (5.0-8.0) Ur Specific [place] 1.006 (1.001-1.035) Urine Protein Negative (Negative) Urine Glucose (UA) Negative (Negative) Urine Ketones Negative (Negative) Urine Blood Negative (Negative) Urine Nitrite Negative (Negative) Urine Bilirubin Negative (Negative) Urine Urobilinogen <2.0 (<2.0) mg/dL Ur Leukocyte Esterase Negative (Negative) Disposition Clinical Impression: Right ureteral calculus Disposition: HOME SELF-CARE Condition: Stable Instructions (If sedation given, give patient instructions): Kidney Stones (ED) Additional Instructions: Please return to the Emergency Department if symptoms worsen or any other concerns. Prescriptions: Tamsulosin [Flomax] 0.4 mg PO DAILY #7 cap Ketorolac [Toradol] 10 mg PO Q8HR #15 tab Ondansetron Odt [Zofran Odt] 4 mg PO Q8HR PRN #10 tab PRN Reason: Nausea Is patient prescribed a controlled substance at d/c from ED?: No Referrals: None,Stated [Primary Care Provider] - 1-2 days Shivam Wood MD [STAFF PHYSICIAN] - 1-2 days Time of Disposition: 14:19
[2021-11-27 14:35] VITALS: BP 150/100; PULSE 87
== END 2021-11-27 14:34 | disposition home or self-care (01) ==
LOC: EC 12:58
DX: N20.1 Calculus of ureter (principal); I10 Essential (primary) hypertension
CPT/HCPCS: 36415; 74176; 80053; 81003; 82150; 83690; 85025; 96360; 99284

== ENCOUNTER → 2023-04-17 | Outpatient (CLI) | payer MEDICAID ==
--- NOTE | 2023-04-17 10:30 | XR ---
Left foot. HISTORY: Dropped foot. COMPARISON: None TECHNIQUE: 3 views left foot were obtained. FINDINGS: There is no fracture, dislocation, intraosseous or intra-articular abnormality. There are no soft tis julia abnormalities. IMPRESSION: No significant abnormality.
--- NOTE | 2023-04-17 10:39 | XR ---
EXAMINATION TYPE: XR ankle complete LT DATE OF EXAM: 04/17/2023 COMPARISON: NONE HISTORY: Pain FINDINGS: Three views of the ankle demonstrate the ankle mortise to be intact and symmetric. The joint spaces are preserved. The osseous structures are intact. Calcaneal spurs. IMPRESSION: 1. No definite acute fracture or dislocation, if symptoms persist follow-up study in 7 to 10 days wou ld be suggested.
--- NOTE | 2023-04-17 10:42 | XR ---
EXAMINATION TYPE: XR femur LT DATE OF EXAM: 04/17/2023 CLINICAL HISTORY: pain TECHNIQUE: Two views of the left femur are obtained. COMPARISON: None FINDINGS: Mild concentric narrowing the hip joint with hypertrophic change of the acetabulum. Correla te for femoral acetabular impingement. There is a sprain or enthesophyte along the upper margin of pa tella. IMPRESSION: 1. No acute fracture. 2. Left hip arthropathy correlate for femoral acetabular impingement.
--- NOTE | 2023-04-17 10:44 | XR ---
EXAMINATION TYPE: XR tibia fibula LT DATE OF EXAM: 04/17/2023 COMPARISON: NONE HISTORY: Pain TECHNIQUE: Two views are submitted. FINDINGS: The osseous structures are intact. The joint spaces are preserved. Calcaneal spurs. Enthesophyte or spurring along the upper margin of the patella. IMPRESSION: 1. No acute osseous abnormality.
--- NOTE | 2023-04-17 10:50 | XR ---
EXAM TYPE: LUMBAR SPINE X RAY SERIES COMPARISON: NONE HISTORY: Foot drop TECHNIQUE: 4 views are submitted. FINDINGS: Alignment is anatomic. The pedicles are intact. The transverse processes are intact. There is no s pondylolysis or spondylolisthesis. Facet arthropathy L5-S1. Hypertrophic spurring L4-5. Degenerative disc disease L5-S1. IMPRESSION: 1. Facet arthropathy L5-S1. Hypertrophic spurring L4-5. Degenerative disc disease L5-S1. If there is findings of foot drop recommend MRI follow-up.
== END | disposition home or self-care (01) ==
LOC: RADXRMAIN 09:29
PROVIDERS: ATTEND Nurse Practitioner
DX: M51.37 Other intervertebral disc degeneration, lumbosacral region (principal); M47.817 Spondylosis without myelopathy or radiculopathy, lumbosacral region; M46.06 Spinal enthesopathy, lumbar region; M16.12 Unilateral primary osteoarthritis, left hip; M79.662 Pain in left lower leg; M25.572 Pain in left ankle and joints of left foot; M21.372 Foot drop, left foot
CPT/HCPCS: 72100